=== PATIENT | male | born 1990 | race Caucasian/White ===

== ENCOUNTER → 2016-10-29 | Outpatient (CLI) | payer OTHER ==
[2016-10-29 08:08] LABS: BASO % 0.3 % (0.0-1.0); EOS # 0.4 K/mm3 (0.0-0.50); EOS % 3.9 % (0.0-3.0); LARGE UNSTAINED CELL # 0.2 K/mm3 (0.0-0.4); LARGE UNSTAINED CELL % 1.8 % (0.0-4.0); LYMPH # 3.9 K/mm3 (1.5-6.5); LYMPH % 36.4 % (24.0-44.0); MEAN CORPUSCULAR HEMOGLOBIN 28.8 pg (27.0-33.0); MEAN CORPUSCULAR VOLUME 84.8 fl (80.0-96.0); MONO # 0.6 K/mm3 (0.0-0.8); MONO % 6.2 % (0.0-5.0); NEUTROPHILS # 5.2 K/mm3 (1.8-7.7); NEUTROPHILS % 51.3 % (36.0-66.0); PLATELET COUNT, AUTOMATED 414 k/mm3 (150-450); RED CELL DISTRIBUTION WIDTH 12.9 % (11.5-14.5); WHITE BLOOD COUNT 10.2 K/mm3 (4.0-10.0)
[2016-10-29 08:32] LABS: ALBUMIN 3.6 GM/DL (3.2-5.2); ALBUMIN/GLOBULIN RATIO 1.03 (1.00-1.93); ALKALINE PHOSPHATASE 72 U/L (45-117); ALT/SGPT 24 U/L (12-78); ANION GAP 7 MEQ/L (8-16); AST/SGOT 12 U/L (15-37); BILIRUBIN,TOTAL 0.3 MG/DL (0.2-1.0); BLOOD UREA NITROGEN 8 MG/DL (7-18); CALCIUM LEVEL 8.6 MG/DL (8.5-10.1); CARBON DIOXIDE LEVEL 28 MEQ/L (21-32); CHLORIDE LEVEL 104 MEQ/L (98-107); CHOLESTEROL LEVEL 201 MG/DL (<200); CREATININE FOR GFR 0.71 MG/DL (0.70-1.30); GLOMERULAR FILTRATION RATE > 60.0 (>60); GLUCOSE, FASTING 91 MG/DL (70-105); POTASSIUM SERUM 4.5 MEQ/L (3.5-5.1); SODIUM LEVEL 139 MEQ/L (136-145); TOTAL PROTEIN 7.1 GM/DL (6.4-8.2); TRIGLYCERIDES LEVEL 138 MG/DL (<150)
== END ==
LOC: M LAB 07:13
PROVIDERS: ATTEND Family Medicine Addiction Medicine
DX: I10 Essential (primary) hypertension (principal)

== ENCOUNTER → 2019-05-14 | Outpatient (CLI) | payer OTHER ==
[2019-05-14 15:55] LABS: HEMOGLOBIN A1c 5.3 %
== END ==
LOC: M LAB 14:47
PROVIDERS: ATTEND Nurse Practitioner Psychiatric/Mental Health
DX: F31.81 Bipolar II disorder (principal); Z79.899 Other long term (current) drug therapy

== ENCOUNTER → 2020-01-28 | Outpatient (CLI) | payer OTHER ==
[2020-01-28 11:25] LABS: HEMATOCRIT 45.2 % (42.0-52.0); HEMOGLOBIN 15.1 g/dl (13.5-17.5); MEAN CORPUSCULAR HEMOGLOBIN 28.5 pg (27.0-33.0); MEAN CORPUSCULAR HGB CONC 33.4 g/dl (32.0-36.5); MEAN CORPUSCULAR VOLUME 85.4 fl (80.0-96.0); PLATELET COUNT, AUTOMATED 376 10^3/uL (150-450); RED BLOOD COUNT 5.29 10^6/uL (4.30-6.10); WHITE BLOOD COUNT 8.6 10^3/uL (4.0-10.0)
[2020-01-28 13:31] LABS: ALBUMIN 3.7 GM/DL (3.2-5.2); ALT/SGPT 21 U/L (12-78); BILIRUBIN,TOTAL 0.6 MG/DL (0.2-1.0); BLOOD UREA NITROGEN 13 MG/DL (7-18); CALCIUM LEVEL 9.2 MG/DL (8.5-10.1); CARBON DIOXIDE LEVEL 30 MEQ/L (21-32); CHLORIDE LEVEL 103 MEQ/L (98-107); CHOLESTEROL LEVEL 193 MG/DL (<200); CHOLESTEROL RISK RATIO 5.514 (<5); CREATININE FOR GFR 0.74 MG/DL (0.70-1.30); FREE T4 0.89 NG/DL (0.76-1.46); GLOMERULAR FILTRATION RATE > 60.0 (>60); GLUCOSE, FASTING 78 MG/DL (70-100); HDL CHOLESTEROL 35 MG/DL (>40); LDL CHOLESTEROL 138 MG/DL (<100); NON-HDL-C 158 MG/DL; SODIUM LEVEL 136 MEQ/L (136-145); TOTAL PROTEIN 7.3 GM/DL (6.4-8.2); TRIGLYCERIDES LEVEL 102 MG/DL (<150); VALPROIC ACID (DEPAKOTE) 14.2 UG/ML (50.0-100.0)
== END ==
LOC: M WUC 08:05
PROVIDERS: ATTEND Nurse Practitioner Psychiatric/Mental Health
DX: F31.81 Bipolar II disorder (principal)

== ENCOUNTER → 2020-03-20 | Outpatient (CLI) | payer OTHER | LOC: M WUC 08:25 | PROVIDERS: ATTEND Nurse Practitioner Psychiatric/Mental Health | DX: F31.81 Bipolar II disorder (principal) ==

== ENCOUNTER → 2020-06-02 | Outpatient (CLI) | payer OTHER ==
[2020-06-02 10:45] LABS: ALBUMIN 3.5 GM/DL (3.2-5.2); ALT/SGPT 25 U/L (12-78); BILIRUBIN,TOTAL 0.4 MG/DL (0.2-1.0); BLOOD UREA NITROGEN 15 MG/DL (7-18); CALCIUM LEVEL 8.7 MG/DL (8.5-10.1); CARBON DIOXIDE LEVEL 29 MEQ/L (21-32); CHLORIDE LEVEL 103 MEQ/L (98-107); CHOLESTEROL LEVEL 206 MG/DL (<200); CHOLESTEROL RISK RATIO 5.282 (<5); CREATININE FOR GFR 0.68 MG/DL (0.70-1.30); GLOMERULAR FILTRATION RATE > 60.0 (>60); GLUCOSE, FASTING 91 MG/DL (70-100); HDL CHOLESTEROL 39 MG/DL (>40); LDL CHOLESTEROL 139 MG/DL (<100); NON-HDL-C 167 MG/DL; POTASSIUM SERUM 4.1 MEQ/L (3.5-5.1); SODIUM LEVEL 139 MEQ/L (136-145); TOTAL PROTEIN 6.8 GM/DL (6.4-8.2); TRIGLYCERIDES LEVEL 141 MG/DL (<150)
[2020-06-02 11:31] LABS: TOTAL 25(OH) VITAMIN D 21.1 NG/ML (30.0-100.0)
[2020-06-02 12:01] LABS: HEMOGLOBIN A1c 5.3 %
== END ==
LOC: M WUC 08:05
PROVIDERS: ATTEND Physician Assistant
DX: Z13.1 Encounter for screening for diabetes mellitus (principal); Z13.220 Encounter for screening for lipoid disorders

== ENCOUNTER 2020-08-18 11:09 | Emergency (ER) | payer OTHER ==
[~2020-08-18] VITALS: Ht 185.4 cm; Wt 168.6 kg
[2020-08-18 15:24] VITALS: BP 159/82
== END 2020-08-18 18:18 | disposition home or self-care (01) ==
LOC: M ED 11:09 → EDBD 11:09 → M ED 18:18
DX: U07.1 COVID-19 (principal); E78.5 Hyperlipidemia, unspecified; F31.9 Bipolar disorder, unspecified; F41.9 Anxiety disorder, unspecified

== ENCOUNTER 2020-08-18 16:01 | Outpatient (CLI) | payer OTHER ==
[~2020-08-18] VITALS: Ht 185.4 cm; Wt 168.2 kg
[2020-08-18] VITALS (8 sets, daily range): BP systolic 131–147; BP diastolic 83–92
--- NOTE | 2020-08-18 15:00 | IPNPDOC ---
Subjective Date Seen The patient was seen on 08/18/20. Subjective Chief Complaint/HPI Mr. Garner is a 30 year old male with bipolar and anxiety who presents with worsening cough. His elder sister's family had caught COVID and his younger sister had been visiting them. The COVID status of the younger sister is unknown at this time, but she is now in quarantine. He thinks that he may have caught it from her. Exposure would've happened about a week ago. He was doing okay until 3 days ago when he started to have cough and nasal congestion. Denies any fever or chills. Does have a little bit of dyspnea and sore throat. Today he had a coughing fit and had a panic attack which brought him to the ED. He tested positive for COVID. Otherwise is doing well at room air. Saturated at 92% with ambulation. Major risk factor is his morbid obesity with a BMI of 49. We discussed monoclonal antibodies including risks such as allergic reaction and side effects from venipuncture. We discussed benefits such as reducing the chance of progression of disease. He understood and was agreeable to monoclonal antibodies. He signed the consent form. Patient will be given monoclonal antibodies today and monitored for side effects. He'll be given Bamlanivimab. Past medical history 1. Anxiety with panic attacks 2. Bipolar 3. Morbid obesity 4. Hyperlipidemia Past surgical history 1. Tonsillectomy and adenoidectomy Family history Father: History of migraines, type 2 diabetes mellitus, hyperlipidemia, sarcoidosis, hypertension, and depression Mother: Type 2 diabetes mellitus, hypertension, hyperlipidemia, hypothyroidism Social history Tobacco use: Denies Alcohol use: Occasional Recreational drug use: Denies REVIEW OF SYSTEMS CONSTITUTIONAL: Denies any fever or chills. Reports lightheadedness. ENT: Reports mild sore throat. RESPIRATORY: Reports mild shortness of breath. Reports cough. CARDIOVASCULAR: Denies chest pain. GASTROINTESTINAL: Denies abdominal pain. Denies diarrhea. Denies constipation GENITOURINARY: Denies dysuria. CUTANEOUS: Denies rashes. MUSCULOSKELETAL: Denies muscle weakness. NEUROLOGICAL: Denies neuropathy. Denies paresthesias. PSYCHOLOGICAL: Reports anxiety. Objective Physical Examination General Exam: Positive: Alert, Cooperative Eye Exam: Positive: EOMI; Negative: Sclera icteric ENT Exam: Positive: Atraumatic Neck Exam: Positive: Supple Chest Exam: Positive: Clear to auscultation, Diminished Heart Exam: Positive: Rate Normal, Regular Rhythm Abdomen Exam: Positive: Normal bowel sounds, Soft; Negative: Tenderness Extremity Exam: Negative: Edema Neuro Exam: Positive: Strength at 5/5 X4 ext Psych Exam: Positive: Mental status NL, Mood NL Assessment /Plan Plan/VTE VTE Prophylaxis Ordered?: No (Ambulation, not being hospitalized) Plan Assessment and plan 1. COVID positive Exposure would've been 7 days ago from family member. Symptoms started 3 days ago Patient is not hypoxic and has not needed supplemental oxygen Major risk factors include morbid obesity Discussed risks and benefits of monoclonal antibodies. Patient is agreeable. Patient will receive Bamlanivimab and be monitored for side effects 2. Bipolar Patient is on Depakote 3. Anxiety Patient is on Prozac 4. Morbid obesity Patient should discuss with PCP about weight loss strategies Risk factor for progression of COVID 19 infection Patient should follow-up with his PCP to monitor for symptoms and progression. Patient will be given home health referral and pulse oximeter. EFE BUENROSTRO DO Aug 18, 2020 15:00
[~2020-08-18 16:01] MED LIST: ALBUTEROL 90 MCG/ACT 8GM HFA INHALER INH PRN; ALBUTEROL SULFATE 2.5 MG/0.5 ML INH NEB SOLN INH PRN; EPINEPHrine INJ 1 MG/ML 1ML AMP IM PRN; NS 1,000 ML IV SCH; diphenhydrAMINE 50MG/ML VIAL (J1200) IV PRN; methylPREDNISolone 125MG 2ML VIAL IV PRN
[2020-08-18] MEDS ORDERED: BAMLANIVIMAB 700 MG, ETESEVIMAB 1,400 MG in NS 250 ML IV ONE (17:00)
== END 2020-08-18 19:15 | disposition home or self-care (01) ==
LOC: M 4MAIN 16:01 → M OPCLI4 16:01
PROVIDERS: ATTEND Internal Medicine
DX: U07.1 COVID-19 (principal)

== ENCOUNTER → 2023-02-26 | Outpatient (CLI) | payer OTHER ==
[2023-02-26 18:39] LABS: HEMOGLOBIN A1c 5.4 % (4.0-6.0)
[2023-02-26 18:52] LABS: ALBUMIN 3.8 G/DL (3.2-5.2); ALKALINE PHOSPHATASE 59 U/L (46-116); ALT/SGPT 26 U/L (7.0-40); AST/SGOT 17 U/L (<34); BILIRUBIN,TOTAL 0.5 MG/DL (0.3-1.2); BLOOD UREA NITROGEN 11 MG/DL (9-23); CALCIUM LEVEL 9.8 MG/DL (8.5-10.1); CARBON DIOXIDE LEVEL 29 MMOL/L (20-31); CHLORIDE LEVEL 104 MMOL/L (98-107); CHOLESTEROL LEVEL 212 MG/DL (<200); CHOLESTEROL RISK RATIO 5.03 (<5); CREATININE FOR GFR 0.66 MG/DL (0.70-1.30); GLOMERULAR FILTRATION RATE > 60.0 (>60); GLUCOSE, FASTING 92 MG/DL (60-100); HDL CHOLESTEROL 42.1 MG/DL (>40); LDL CHOLESTEROL 135.3 MG/DL (<100); NON-HDL-C 169.9 MG/DL; POTASSIUM SERUM 4.6 MMOL/L (3.5-5.1); SODIUM LEVEL 140 MMOL/L (136-145); TOTAL 25(OH) VITAMIN D 38.1 NG/ML (20.0-100.0); TOTAL PROTEIN 7.5 G/DL (5.7-8.2); TRIGLYCERIDES LEVEL 173 MG/DL (<150)
== END ==
LOC: M PLALAB 15:23
PROVIDERS: ATTEND Family Medicine
DX: E55.9 Vitamin D deficiency, unspecified (principal); E66.01 Morbid (severe) obesity due to excess calories; R03.0 Elevated blood-pressure reading, without diagnosis of hypertension

== ENCOUNTER 2023-07-29 09:05 | Inpatient (IN) | payer OTHER ==
[~2023-07-29] VITALS: Ht 185.4 cm; Wt 171.1 kg
[2023-07-29] MEDS: DOCUSATE SODIUM 100MG CAPSULE PO SCH (09:00)
[2023-07-29] MEDS ORDERED: DIVA500T9 PO ×2 (09:20→13:28)
[2023-07-29] MEDS ORDERED: BUSP15TA47 PO (09:20)
[2023-07-29] MEDS ORDERED: CETI-24 PO (09:20)
[2023-07-29] MEDS ORDERED: FLUTISP NARES (09:20)
[2023-07-29] MEDS ORDERED: VENL150C43 PO (09:20)
[2023-07-29 12:20] LABS: BASO % 0.2 % (0.0-1.0); EOS # 0.1 10^3/uL (0.0-0.5); EOS % 0.4 % (0.0-3.0); HEMATOCRIT 44.6 % (42.0-52.0); LYMPH # 1.9 10^3/uL (1.5-5.0); LYMPH % 9.3 % (24.0-44.0); MEAN CORPUSCULAR HEMOGLOBIN 29.1 pg (27.0-33.0); MEAN CORPUSCULAR HGB CONC 33.6 g/dl (32.0-36.5); MEAN CORPUSCULAR VOLUME 86.4 fl (80.0-96.0); MONO # 2.2 10^3/uL (0.0-0.8); MONO % 10.5 % (2.0-8.0); NEUTROPHILS # 16.4 10^3/uL (1.5-8.5); NEUTROPHILS % 78.8 % (36.0-66.0); PLATELET COUNT, AUTOMATED 345 10^3/uL (150-450); RED BLOOD COUNT 5.16 10^6/uL (4.30-6.10); WHITE BLOOD COUNT 20.8 10^3/uL (4.0-10.0)
[2023-07-29 12:36] LABS: ERYTHROCYTE SEDIMENTATION RATE 54 mm/hr (0-15)
[2023-07-29 12:45] LABS: ALBUMIN 3.4 G/DL (3.2-5.2); ALKALINE PHOSPHATASE 58 U/L (46-116); ALT/SGPT 19 U/L (7.0-40); AST/SGOT 36 U/L (<34); BILIRUBIN,DIRECT 0.2 MG/DL (<0.4); BILIRUBIN,TOTAL 0.8 MG/DL (0.3-1.2); TOTAL PROTEIN 7.1 G/DL (5.7-8.2)
[2023-07-29] MEDS: cefTRIAXone SOD 1 GM in D5W MINI-BAG PLUS 50 ML IV ONE (13:23)
[2023-07-29] MEDS: NS 1,000 ML IV ONE (13:23)
[2023-07-29 13:28] LABS: Trichomonas vaginalis (AMP) NOT DETECTED (NEGATIVE)
[2023-07-29] MEDS ORDERED: HOME MED LIST COMPLETE! XX SCH (13:30)
[2023-07-29] MEDS ORDERED: MOM 30ML SUSPENSION UDC PO PRN (13:45)
[2023-07-29] MEDS ORDERED: cefTRIAXone SOD 1 GM in D5W MINI-BAG PLUS 50 ML IV SCH (13:45)
[2023-07-29 13:51] LABS: GC DNA AMPLIFICATION NEGATIVE (NEGATIVE)
[2023-07-29] MEDS: metroNIDAZOLE 500 MG in IV 1 EA IV ONE (13:54)
[2023-07-29] MEDS ORDERED: CEFTAROLINE FOSAMIL 600 MG in D5W MINI-BAG PLUS 50 ML IV SCH (13:55)
[2023-07-29 13:56] LABS: RSV AMPLIFICATION NEGATIVE (NEGATIVE)
[2023-07-29] MEDS: VANCOMYCIN HCL 1,000 MG, VIAL MATE ADAPTER 1 EACH in D5W 250 ML IV ONE ×2 (15:50→16:58)
[2023-07-29] MEDS ORDERED: AMPICILLIN SOD/SULBACTAM SOD 3 GM in D5W MINI-BAG PLUS 100 ML IV SCH (17:00)
[2023-07-29 17:30] VITALS: BP 140/78; TEMP 98.2; O2SAT 98
[2023-07-29] MEDS: AMPICILLIN SOD/SULBACTAM SOD 3 GM in D5W MINI-BAG PLUS 100 ML IV SCH (19:19)
[2023-07-29] MEDS: ACETAMINOPHEN TAB 650MG DOSE (2X325MG) PO PRN (19:20)
[2023-07-29 19:52] LABS: MAGNESIUM LEVEL 1.9 MG/DL (1.8-2.4)
[2023-07-29 20:02] LABS: PROCALCITONIN 0.13 ng/ml
[2023-07-29] MEDS: DIVALPROEX 500MG *ER* TAB PO SCH (20:11)
[2023-07-29] MEDS: VANCOMYCIN HCL 1,000 MG, VIAL MATE ADAPTER 1 EACH in D5W 250 ML IV SCH (20:11)
[2023-07-29] MEDS: busPIRone 5 MG TAB PO SCH (20:11)
[2023-07-29] MEDS ORDERED: metroNIDAZOLE 500 MG in IV 1 EA IV SCH (21:00)
[2023-07-29] MEDS: VANCOMYCIN HCL 750 MG, VIAL MATE ADAPTER 1 EACH in D5W 250 ML IV SCH (21:22)
[2023-07-29 22:00] VITALS: BP 142/84; TEMP 99.5; O2SAT 95
[2023-07-30] VITALS: BP 136/83; TEMP 99; O2SAT 94
[2023-07-30] MEDS: HEPARIN SOD (PORCINE) 5000UNITS/ML 1ML VIAL/SYRINGE SC SCH (00:16)
[2023-07-30 06:00] VITALS: BP 133/65; TEMP 98.1; O2SAT 93
[2023-07-30 07:22] LABS: BASO % 0.2 % (0.0-1.0); EOS # 0.2 10^3/uL (0.0-0.5); EOS % 0.9 % (0.0-3.0); HEMATOCRIT 36.6 % (42.0-52.0); LYMPH # 2.9 10^3/uL (1.5-5.0); LYMPH % 15.6 % (24.0-44.0); MEAN CORPUSCULAR HEMOGLOBIN 29.6 pg (27.0-33.0); MEAN CORPUSCULAR HGB CONC 34.4 g/dl (32.0-36.5); MEAN CORPUSCULAR VOLUME 85.9 fl (80.0-96.0); MONO # 2.2 10^3/uL (0.0-0.8); MONO % 11.7 % (2.0-8.0); NEUTROPHILS # 13.3 10^3/uL (1.5-8.5); NEUTROPHILS % 70.7 % (36.0-66.0); PLATELET COUNT, AUTOMATED 337 10^3/uL (150-450); RED BLOOD COUNT 4.26 10^6/uL (4.30-6.10); WHITE BLOOD COUNT 18.8 10^3/uL (4.0-10.0)
[2023-07-30 07:25] LABS: HEMOGLOBIN 12.6 g/dl (13.5-17.5)
[2023-07-30 07:32] LABS: BLOOD UREA NITROGEN 9 MG/DL (9-23); CALCIUM LEVEL 7.6 MG/DL (8.5-10.1); CARBON DIOXIDE LEVEL 28 MMOL/L (20-31); CHLORIDE LEVEL 102 MMOL/L (98-107); CREATININE FOR GFR 0.71 MG/DL (0.70-1.30); GLOMERULAR FILTRATION RATE > 60.0 (>60); GLUCOSE, FASTING 123 MG/DL (60-100); POTASSIUM SERUM 3.8 MMOL/L (3.5-5.1); SODIUM LEVEL 137 MMOL/L (136-145); VANCOMYCIN LEVEL TROUGH 5.6 UG/ML (10.0-20.0)
[2023-07-30] MEDS: VENLAFAXINE **XR** 75MG CAPSULE PO SCH (09:13)
[2023-07-30] MEDS: MUPIROCIN 2% OINT 22 GM TUBE TOP SCH (09:13)
[2023-07-30] MEDS: CETIRIZINE (ZyrTEC) 10 MG TAB PO SCH (09:13)
[2023-07-30] MEDS: DIVALPROEX 500MG *ER* TAB PO SCH (09:13)
[2023-07-30] MEDS: FLUTICASONE PROP 0.05% NASAL SPRAY 16 GM (FLONASE) NARES SCH (09:19)
[2023-07-30 14:00] VITALS: BP 146/75; TEMP 99; O2SAT 96
[2023-07-30 22:00] VITALS: BP 153/96; TEMP 98.4; O2SAT 97
[2023-07-31 06:00] VITALS: BP 139/85; TEMP 97.7; O2SAT 95
[2023-07-31 07:19] LABS: BASO % 0.3 % (0.0-1.0); EOS # 0.4 10^3/uL (0.0-0.5); EOS % 2.5 % (0.0-3.0); HEMATOCRIT 36.9 % (42.0-52.0); HEMOGLOBIN 12.5 g/dl (13.5-17.5); LYMPH % 19.5 % (24.0-44.0); MEAN CORPUSCULAR HEMOGLOBIN 29.1 pg (27.0-33.0); MEAN CORPUSCULAR HGB CONC 33.9 g/dl (32.0-36.5); MEAN CORPUSCULAR VOLUME 85.8 fl (80.0-96.0); MONO # 1.5 10^3/uL (0.0-0.8); MONO % 9.5 % (2.0-8.0); NEUTROPHILS # 10.3 10^3/uL (1.5-8.5); NEUTROPHILS % 67.2 % (36.0-66.0); PLATELET COUNT, AUTOMATED 358 10^3/uL (150-450); WHITE BLOOD COUNT 15.4 10^3/uL (4.0-10.0)
[2023-07-31] MEDS: VANCOMYCIN HCL 1,000 MG, VIAL MATE ADAPTER 1 EACH in D5W 250 ML IV SCH (09:08)
[2023-07-31] MEDS ORDERED: ISOVUE-370 76% 100ML VIAL As Ordered ONE (09:09)
[2023-07-31] MEDS ORDERED: VANCOMYCIN HCL 1,000 MG, VIAL MATE ADAPTER 1 EACH in D5W 250 ML IV ONE (10:00)
[2023-07-31] MEDS: CEFTAROLINE FOSAMIL 600 MG in D5W MINI-BAG PLUS 50 ML IV SCH (11:37)
[2023-07-31 11:41] LABS: INR 1.11
[2023-07-31] MEDS ORDERED: metroNIDAZOLE 500 MG in IV 1 EA IV SCH (12:00)
[2023-07-31 14:00] VITALS: BP_SYST 109; BP_SYST 135; BP_DIAS 68; BP_DIAS 85; TEMP 97.9; TEMP 98.1; O2SAT 91; O2SAT 97
[2023-07-31] MEDS: metroNIDAZOLE (FLAGYL) 500MG TABLET PO SCH (15:04)
[2023-07-31] MEDS: RIVAROXABAN 10MG TAB (XARELTO) PO SCH (17:18)
[2023-07-31 20:47] VITALS: BP 137/85; TEMP 98.4; O2SAT 95
[2023-08-01 06:31] VITALS: BP 124/84; TEMP 97.3; O2SAT 96
[2023-08-01 06:48] LABS: BASO # 0.1 10^3/uL (0.0-0.2); BASO % 0.4 % (0.0-1.0); EOS # 0.6 10^3/uL (0.0-0.5); EOS % 4.4 % (0.0-3.0); HEMATOCRIT 37.2 % (42.0-52.0); HEMOGLOBIN 12.8 g/dl (13.5-17.5); LYMPH % 28.4 % (24.0-44.0); MEAN CORPUSCULAR HEMOGLOBIN 29.4 pg (27.0-33.0); MEAN CORPUSCULAR HGB CONC 34.4 g/dl (32.0-36.5); MEAN CORPUSCULAR VOLUME 85.5 fl (80.0-96.0); MONO # 1.2 10^3/uL (0.0-0.8); MONO % 8.7 % (2.0-8.0); NEUTROPHILS # 7.9 10^3/uL (1.5-8.5); NEUTROPHILS % 56.7 % (36.0-66.0); PLATELET COUNT, AUTOMATED 396 10^3/uL (150-450); RED BLOOD COUNT 4.35 10^6/uL (4.30-6.10)
[2023-08-01] MEDS ORDERED: AMOX875T2 PO (10:48)
[2023-08-01] MEDS ORDERED: DOXY100C82 PO (10:48)
== END 2023-08-01 12:50 | disposition home or self-care (01) | DRG 501 ==
LOC: M ED 09:05 → M ED INP 13:44 → EEVIPCON 13:44 → ENRESERV 17:02 → M MSPAV 17:30
PROVIDERS: ADMIT Student in an Organized Health Care Education/Training Program; ATTEND Student in an Organized Health Care Education/Training Program
DX: N49.2 Inflammatory disorders of scrotum (principal); B95.61 Methicillin susceptible Staphylococcus aureus infection as the cause of diseases classified elsewhere; F31.9 Bipolar disorder, unspecified; E66.9 Obesity, unspecified; F41.9 Anxiety disorder, unspecified; Z79.899 Other long term (current) drug therapy; D64.9 Anemia, unspecified

== ENCOUNTER 2024-11-27 16:36 | Inpatient (IN) | payer OTHER, MEDICAID ==
[~2024-11-27] VITALS: Ht 185.4 cm; Wt 159.0 kg
[~2024-11-27 16:36] MED LIST changes: -ALBUTEROL 90 MCG/ACT 8GM HFA INHALER INH PRN; -ALBUTEROL SULFATE 2.5 MG/0.5 ML INH NEB SOLN INH PRN; +AMOX875T2 PO; +BUSP15TA47 PO; +CETI-24 PO; +DIVA500T9 PO; +DOXY-442 PO; -EPINEPHrine INJ 1 MG/ML 1ML AMP IM PRN; +FLUTISP NARES; -NS 1,000 ML IV SCH; +VENL150C43 PO; -diphenhydrAMINE 50MG/ML VIAL (J1200) IV PRN; -methylPREDNISolone 125MG 2ML VIAL IV PRN
[2024-11-27 17:35] LABS: PLATELET COUNT, AUTOMATED 365 10^3/uL (150-450)
[2024-11-27 17:55] LABS: AMPHETAMINES LEVEL URINE NEGATIVE (NEGATIVE); BARBITURATES URINE NEGATIVE (NEGATIVE); BENZODIAZEPINES URINE NEGATIVE (NEGATIVE); COCAINE METABOLITE URINE NEGATIVE (NEGATIVE); METHADONE URINE NEGATIVE (NEGATIVE); OPIATES URINE NEGATIVE (NEGATIVE); PHENCYCLIDINE URINE NEGATIVE (NEGATIVE)
[2024-11-27 17:56] LABS: CANNABINOIDS URINE POSITIVE (NEGATIVE)
[2024-11-27 17:59] LABS: ETHYL ALCOHOL (ETHANOL) < 0.003 % (0.000-0.010); VALPROIC ACID (DEPAKOTE) < 3.0 UG/ML (50.0-100.0)
[2024-11-27 18:00] LABS: SALICYLATE LEVEL < 3.0 MG/DL (<30)
[2024-11-27 18:02] LABS: ALT/SGPT 17 U/L (7.0-40); AST/SGOT 19 U/L (<34); CALCIUM LEVEL 9.8 MG/DL (8.5-10.1); CARBON DIOXIDE LEVEL 26 MMOL/L (20-31); CHLORIDE LEVEL 104 MMOL/L (98-107); CREATININE FOR GFR 0.66 MG/DL (0.70-1.30); GLOMERULAR FILTRATION RATE > 90.0 (>60); POTASSIUM SERUM 4.4 MMOL/L (3.5-5.1); SODIUM LEVEL 143 MMOL/L (136-145)
[2024-11-27] MEDS ORDERED: VENL75CA47 PO (21:05)
[2024-11-27] MEDS ORDERED: BUSP10TA PO (21:05)
[2024-11-27] MEDS ORDERED: HOME MED LIST COMPLETE! XX SCH (21:10)
[2024-11-27] MEDS ORDERED: MOM 30 ML SUSPENSION UDC PO PRN (21:35)
[2024-11-27] MEDS ORDERED: MAALOX 30 ML SUSP *UDC PO PRN (21:35)
[2024-11-27] MEDS ORDERED: IBUPROFEN 400 MG TAB PO PRN (21:35)
[2024-11-27] MEDS ORDERED: ACETAMINOPHEN 325 MG TAB PO PRN (21:35)
[2024-11-27 22:58] VITALS: BP 154/110; TEMP 97.8; O2SAT 100
[2024-11-27 23:39] VITALS: BP 158/104
[2024-11-27] MEDS: traZODone 50 MG TAB PO PRN (23:45)
[2024-11-28 06:28] VITALS: BP 142/102; TEMP 97.5; O2SAT 99
[2024-11-28 08:36] VITALS: BP 154/104
[2024-11-28] MEDS: VENLAFAXINE **XR** 75MG CAPSULE PO SCH (10:46)
[2024-11-28] MEDS: VENLAFAXINE **XR** 75MG CAPSULE PO ONE (11:09)
[2024-11-28 15:25] VITALS: BP 144/98; TEMP 97.3; O2SAT 95
[2024-11-29 06:28] VITALS: BP 149/97; TEMP 97.3; O2SAT 98
[2024-11-29] MEDS: VENLAFAXINE **XR** 75MG CAPSULE PO SCH (08:20)
[2024-11-29 16:35] VITALS: BP 118/72; TEMP 97; O2SAT 93
[2024-11-30 06:36] VITALS: BP 184/94; TEMP 97.9; O2SAT 98
[2024-11-30 07:40] VITALS: BP 162/98; TEMP 98; O2SAT 97
[2024-11-30] MEDS ORDERED: **hydrALAZINE HCL** 25 MG TAB PO PRN (13:35)
[2024-11-30 15:09] VITALS: BP 148/82; TEMP 98.2; O2SAT 96
[2024-11-30 20:50] VITALS: BP 138/90; TEMP 97; O2SAT 95
[2024-12-01 06:20] VITALS: BP 148/98; TEMP 98.2; O2SAT 100
== END 2024-12-01 11:50 | disposition home or self-care (01) | DRG 755 ==
LOC: M ED 16:36 → M ED INP 21:33 → EEVIPCON 21:33 → M PSY 23:00
PROVIDERS: ADMIT General Practice; ATTEND General Practice
DX: F40.01 Agoraphobia with panic disorder (principal); F32.A Depression, unspecified; R45.851 Suicidal ideations; E66.01 Morbid (severe) obesity due to excess calories; Z56.0 Unemployment, unspecified; Z79.899 Other long term (current) drug therapy

== ENCOUNTER → 2025-03-21 | Outpatient (CLI) | payer OTHER ==
[~2025-03-21] MED LIST changes: +BUSP10TA PO; +VENL75CA47 PO
[2025-03-21 15:33] LABS: PLATELET COUNT, AUTOMATED 347 10^3/uL (150-450); VALPROIC ACID (DEPAKOTE) 59.0 UG/ML (50.0-100.0)
[2025-03-21 15:34] LABS: ALT/SGPT 16.0 U/L (7.0-40); AST/SGOT 14.0 U/L (<34)
== END ==
LOC: M PLALAB 11:11
PROVIDERS: ATTEND Psychiatry & Neurology Psychiatry
DX: F34.1 Dysthymic disorder (principal); F40.10 Social phobia, unspecified; F63.81 Intermittent explosive disorder; F90.2 Attention-deficit hyperactivity disorder, combined type; F33.2 Major depressive disorder, recurrent severe without psychotic features; F31.9 Bipolar disorder, unspecified